=== PATIENT | female | born 1970 | race Caucasian/White ===

== ENCOUNTER 2021-03-14 09:31 | Emergency (ER) | payer OTHER, SELFPAY ==
[2021-03-14 09:41] VITALS: BP 154/80; PULSE 74; RESP 12; TEMP 37.1; O2SAT 100
--- NOTE | 2021-03-14 10:09 | ED.GENADULT ---
HPI - General Adult General Chief complaint: Medical Clearance Stated complaint: wellness check Time Seen by Provider: 03/14/21 10:09 Source: patient, RN notes reviewed and old records reviewed Mode of arrival: ambulatory Limitations: no limitations History of Present Illness HPI narrative: 50-year-old female who presents to [facility] stating that she needs a return to work note. 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 Patient denies any ill symptoms, states has not had any nausea, vomiting or diarrhea, no fevers, chills or sweats, denies any ill symptoms. Has had her COVID vaccination. Related Data Allergies Allergy/AdvReac Type Severity Reaction Status Date / Time No Known Allergies Allergy Unverified 12/11/19 08:50 Review of Systems Review of Systems: Narrative: CONSTITUTIONAL: Denies fever, chills, or sweats. EYES: Denies visual changes, redness, or discharge. ENT: Denies rhinorrhea, congestion, sore throat, or otalgia. CARDIOVASCULAR: Denies chest pain, palpitations, or edema. RESPIRATORY: Denies cough or dyspnea. GASTROINTESTINAL: Denies abdominal pain, nausea, vomiting, or diarrhea. GENITOURINARY: Denies dysuria or hematuria. SKIN: Denies rash or itching. MUSCULOSKELETAL: Denies back pain, joint pain, or myalgia. NEUROLOGIC: Denies headache, numbness, or weakness. PSYCHIATRIC: Positive history of anxiety or depression. All systems reviewed & are unremarkable except as noted in HPI and below PMFSH Past Medical History Medical History (Updated 03/15/21 @ 00:01 by Familia Pimentel) Anxiety and depression Nicotine dependence Surgical History Surgical History (Updated 03/14/21 @ 10:35 by Francisca Camejo NP) Previous section Family History Family History (Updated 03/14/21 @ 10:37 by Francisca Camejo NP) Mother Hypertension Cerebrovascular accident Rectal cancer Father Family history of cardiovascular disease Heart disease Grandparent Bladder cancer Social History Social History (Updated 03/14/21 @ 10:36 by Francisca Camejo NP) Smoking packs per day: 1 Smoking cigarettes per day: 20.0 Smoking status: Current every day smoker Tobacco type: cigarettes Alcohol intake: current Substance use: unknown Living arrangements: with family Gender identity (if verbalized by the patient): Female Comments At time of signature, agree with nursing past medical, surgical, social and family history. There is no relevant family history pertinent to the presenting complaint Exam Narrative: Exam Narrative: GENERAL: Well-appearing, well-nourished, and in no acute distress. HEAD: Normocephalic, atraumatic. EYES: PERRLA and EOMI. ENT: Nares red, no rhinorrhea or epistaxis. Mucous membranes moist.TM's normal with good light reflex, throat pink with no lesions or exudates, no tonsil swelling. has poor dentition with numerous caries and some broken teeth noted, history of tobacco abuse. NECK: Supple.no lymphadenopathy CHEST: Clear to auscultation. No respiratory distress.SAO2 100% on room air HEART: Regular rate and rhythm. No murmur heard. Normal peripheral pulses. ABDOMEN: Soft, nontender, nondistended, normal active bowel sounds.Denies any nausea vomiting or diarrhea episodes. EXTREMITIES: Normal range of motion. No edema. SKIN: Warm, dry, no rash. NEURO: No focal deficits. Alert and oriented x3. Course Vital Signs Vital signs: Vital Signs Temperature 37.1 C 03/14/21 09:41 Pulse Rate 74 03/14/21 09:41 Respiratory Rate 12 03/14/21 09:41 Blood Pressure 154/80 H 03/14/21 09:41 Pulse Oximetry 100 03/14/21 09:41 Temperature 37.1 C 03/14/21 09:41 Pulse Rate 74 03/14/21 09:41 Respiratory Rate 12 03/14/21 09:41 Blood Pressure 154/80 H 03/14/21 09:41 Pulse Oximetry 100 03/14/21 09:41
== END 2021-03-14 10:35 | disposition home or self-care (01) ==
PROVIDERS: Emergency Provider Registered Nurse; PCP Physician Assistant
DX: Z00.8 Encounter for other general examination (principal); F17.210 Nicotine dependence, cigarettes, uncomplicated; F41.9 Anxiety disorder, unspecified; F32.9 Major depressive disorder, single episode, unspecified
CPT/HCPCS: 99211; G0463

== ENCOUNTER 2021-08-15 07:45 | Emergency (ER) | payer OTHER, SELFPAY ==
[2021-08-15 08:05] VITALS: BP 170/77; PULSE 81; RESP 14; TEMP 37.1; O2SAT 100
--- NOTE | 2021-08-15 08:48 | ED.GENADULT ---
HPI - General Adult General Chief complaint: Anxiety Stated complaint: anxiety Time Seen by Provider: 08/15/21 07:48 History of Present Illness HPI narrative: Patient is a 51-year-old female who presents ER with reports of anxiety. Reports she had been driving her car and pulled over to the side of the road. She had been feeling overwhelmed when she tried to get back into traffic she cannot time herself with cars to pull back into traffic properly became increasingly more nervous and anxious. She reports history of anxiety but has not been taking her Escitalopram. No recent stressors. No change in lifestyle. Denies chest pain or chest pressure. No nausea/vomiting/shortness of breath. Reports having some generalized weakness a few days ago. No focal numbness or weakness to an arm or leg. No slurred speech or facial droop. 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 Related Data Allergies Allergy/AdvReac Type Severity Reaction Status Date / Time No Known Allergies Allergy Unverified 12/11/19 08:50 Review of Systems Review of Systems: All systems reviewed & are unremarkable except as noted in HPI and below Constitutional: Constitutional: Denies chills, Reports fatigue and Denies fever(s) ENT: Denies nasal congestion and Denies sore throat Cardiovascular: Cardiovascular: Denies chest pain, Denies rapid heart rate and Denies radiating jaw, neck or arm pain Respiratory: Respiratory: Denies cough and Denies dyspnea Neurologic: Denies focal weakness and Denies numbness Psychiatric: Psychiatric: Reports anxiety and Denies depression [facility] Past Medical History Medical History (Updated 08/15/21 @ 10:04 by Demarco Quintana MD) Anxiety and depression Nicotine dependence Surgical History Surgical History (Updated 03/14/21 @ 10:35 by Francisca Camejo NP) Previous section Family History Family History (Updated 03/14/21 @ 10:37 by Francisca Camejo NP) Mother Hypertension Cerebrovascular accident Rectal cancer Father Family history of cardiovascular disease Heart disease Grandparent Bladder cancer Social History Social History (Updated 03/14/21 @ 10:36 by Francisca Camejo NP) Smoking packs per day: 1 Smoking cigarettes per day: 20.0 Smoking status: Current every day smoker Tobacco type: cigarettes Alcohol intake: current Substance use: unknown Substance use type: does not use Gender identity (if verbalized by the patient): Female Exam Narrative: GENERAL: Well-appearing, well-nourished, and in no acute distress. HEAD: Normocephalic, atraumatic. EYES: PERRL and EOMI. ENT: Mucous membranes moist. CHEST: Clear to auscultation. No respiratory distress. HEART: Regular rate and rhythm. Normal peripheral pulses. ABDOMEN: Soft, nontender, nondistended. EXTREMITIES: Normal range of motion. No edema. 5/5 strength BUE/BLE. SKIN: Warm, dry, no rash. NEURO: No focal deficits. No upper extremity drift. CN II-XII intact. Alert and oriented x3. PSYCH: Mildly anxious, no hallucinations. Course Course Emergency Course: Symptoms resolved with Xanax. Discharge home. Vital Signs Vital signs: Vital Signs Temperature 98.8 F 08/15/21 08:05 Pulse Rate 81 08/15/21 08:05 Respiratory Rate 14 08/15/21 08:05 Blood Pressure 170/77 H 08/15/21 08:05 Pulse Oximetry 100 08/15/21 08:05 Temperature 98.8 F 08/15/21 08:05 Pulse Rate 81 08/15/21 08:05 Respiratory Rate 14 08/15/21 08:05 Blood Pressure 170/77 H 08/15/21 08:05 Pulse Oximetry 100 08/15/21 08:05 Medical Decision Making Vital Signs Vital Signs: Vital Signs Temperature 98.8 F 08/15/21 08:05 Pulse Rate 81 08/15/21 08:05 Respiratory Rate 14 08/15/21 08:05 Blood Pressure 170/77 H 08/15/21 08:05 Pulse Oximetry 100 08/15/21 08:05 Temperature 98.8 F 08/15/21 08:05 Pulse Rate 81 08/15/21 08:05 Respiratory R
[2021-08-15] MEDS: ALPRAZolam (*CRX) 0.25 MG TABLET 0.5 MG PO (09:02)
[2021-08-15 10:15] VITALS: BP 126/72; PULSE 64; RESP 12; O2SAT 98
== END 2021-08-15 10:15 | disposition home or self-care (01) ==
PROVIDERS: Emergency Provider Emergency Medicine; PCP Physician Assistant
DX: F41.9 Anxiety disorder, unspecified (principal); F32.A Depression, unspecified; F17.210 Nicotine dependence, cigarettes, uncomplicated
CPT/HCPCS: 99283; A9270

== ENCOUNTER → 2023-01-12 08:16 | Outpatient (CLI) | payer OTHER, SELFPAY ==
--- NOTE | ~2023-01-12 | CT_ITS ---
EXAMINATION:CT lung screening DATE: 01/12/2023 08:29 INDICATION: Personal history of tobacco dependence. Current smoker with 35 pack year history. TECHNIQUE: Computed tomography (CT) of the chest was performed without intravenous contrast. Automate d exposure control and iterative reconstruction technique were employed. The dose-length product (DLP ) was 36.94 mGy-cm. COMPARISON: Chest 2 views 07/08/2009 FINDINGS: There is mild emphysema. There is mild atelectasis bilaterally. There is a 5 mm nodule in r ight lower lobe abutting the pleura. There is a 6 mm nodule in lingula. There is a 2 mm nodule in lef t upper lobe. There is a 4 mm nodule in left upper lobe. No pleural effusion. The heart size is sonia l. There are coronary artery calcifications. No pericardial effusion. There is a 1.5 cm mass in left breast at 12:00. There is an 8 mm cyst in the liver. There is mild thoracic spondylosis. IMPRESSION: 1. Lung-RADS category 3S: Probably benign. Further evaluation is recommended with noncontrast low-dos e chest CT in 6 months. 2. Left breast mass. A diagnostic mammogram and ultrasound are recommended. Reviewed, dictated and finalized at location A. IMPRESSION: 1. Lung-RADS category 3S: Probably benign. Further evaluation is recommended wi th noncontrast low-dose chest CT in 6 months. 2. Left breast mass. A diagnostic mammogram and ultrasound are recommended.
== END ==
PROVIDERS: PCP Physician Assistant; Visit Provider Physician Assistant
DX: Z12.2 Encounter for screening for malignant neoplasm of respiratory organs (principal); F17.210 Nicotine dependence, cigarettes, uncomplicated; R91.8 Other nonspecific abnormal finding of lung field
CPT/HCPCS: 71271

== ENCOUNTER 2023-01-30 11:58 | Observation (INO) | payer OTHER, SELFPAY ==
[2023-01-30] VITALS (13 sets, daily range): BP systolic 149–193; BP diastolic 55–85; PULSE 54–79; RESP 9–18; TEMP 36.1–36.6; O2SAT 92–98; BMI 16.8
--- NOTE | 2023-01-30 | ECHO_ITS ---
Patient Info Name: Rae Garrett Age: 52 years : 1970 Gender: Female Ht: 66 in Wt: 112 lbs BSA: 1.53 m2 HR: 62 bpm BP: 185 / 76 mmHg Heart Rhythm: Sinus Rhythm Technical Quality: Good Exam Date: 01/30/2023 4:40 PM Exam Location: [facility] Card Pulmonary Patient Status: Outpatient Admit Date: 01/30/2023 Staff Ordering Physician: Trip Lancaster DO Law Reporter: Ana Deleon RDCS Attending Provider: Justen Medina MD Referring Physician: Anisha PINK; Exam Type: CA echo doppler color flow Study Info Indications - TIA Complete two-dimensional, color flow and Doppler transthoracic echocardiogram is performed. Summary 1. Complete two-dimensional, color flow and Doppler transthoracic echocardiogram is performed. 2. Left ventricular chamber dimension is normal. 3. Left ventricular systolic function is normal, estimated at 65-70%. 4. The left ventricular diastolic function is grade II diastolic dysfunction. 5. E/e' 9 is minimally elevated. 6. There is mild aortic valve sclerosis. 7. There is mild aortic valve regurgitation. 8. There is trace mitral valve regurgitation. 9. No pulmonary hypertension, estimated pulmonary arterial systolic pressure is 22 mmHg. Left Ventricle E/e' 9 is minimally elevated. Left ventricular chamber dimension is normal. Left ventricular systolic function is normal, estimated at 65-70%. The left ventricular diastolic function is grade II diastolic dysfunction. Right Ventricle Right ventricular systolic function is normal and with normal TAPSE 2.3 cm. Right ventricular chamber dimension is normal. Left Atria Left atrial chamber dimension is normal. Right Atria Right atrial chamber dimension is normal. Aortic Valve The aortic valve is trileaflet. There is mild aortic valve sclerosis. There is no aortic valve stenosis. There is mild aortic valve regurgitation. Pulmonic Valve There is no pulmonic regurgitation. Mitral Valve There is no mitral valve stenosis. There is trace mitral valve regurgitation. Tricuspid Valve There is no tricuspid valve regurgitation. No pulmonary hypertension, estimated pulmonary arterial systolic pressure is 22 mmHg. Pericardium/Pleural There is no pericardial effusion. Inferior Vena Cava Normal inferior vena cava with >50% collapse upon inspiration consistent with normal right atrial pressure, 5 mmHg. Aorta The aortic root size at the sinus of Valsalva is normal. Left Ventricular Outflow Tract Name Value Normal LVOT 2D LVOT Diameter 2.0 cm LVOT Doppler LVOT Peak Gradient 4 mmHg LVOT Mean Gradient 2 mmHg LVOT VTI 21 cm LVOT VTI/AV VTI Ratio 0.7 LVOT Stroke Volume 65 ml LVOT CO 3.6 l/min LVOT CI 2.3 l/min/m2 Pulmonic Valve Name Value Normal
--- NOTE | ~2023-01-30 | XR_ITS ---
EXAMINATION: XR chest 1V INDICATION: Left arm weakness TECHNIQUE: PA view of the chest is obtained. COMPARISON: 07/08/2009 FINDINGS: The lungs are free of acute opacities. No pleural effusion or pneumothorax. The cardiomedia stinal silhouette is normal. The visualized bones and soft tissues are unremarkable. IMPRESSION: 1. No acute cardiopulmonary abnormality. Reviewed, dictated and finalized at location L.
--- NOTE | ~2023-01-30 | CT_ITS ---
EXAMINATION: CT brain wo con INDICATION: Gait abnormalities and left arm weakness COMPARISON: 05/17/2018 TECHNIQUE: Standard unenhanced head CT. The dose-length product (DLP) was 605.33 mGy-cm. The mA was a djusted according to patient size. Iterative reconstruction technique was employed. FINDINGS: There is no intracranial hemorrhage or abnormal mass lesion. There is an area of hypoattenu ation involving the right frontal, temporal, and parietal region with loss of higginbotham-white matter diffe rentiation. There is subtle hypoattenuation in the right frontal lobe pineda radiata. The ventricles are normal. There is no abnormal mass effect or midline shift. The higginbotham-white matter differentiation is normal. The basal cisterns are patent. The orbits are normal. The paranasal sinuses, mastoids and calvarium are normal. IMPRESSION: 1. Age-indeterminate infarcts involving the right frontal, temporal, and parietal region as well as t he right frontal lobe pineda radiata Reviewed, dictated and finalized at location L. IMPRESSION: 1. Age-indeterminate infarcts involving the right frontal, temporal, and pariet al region as well as the right frontal lobe pineda radiata
--- NOTE | ~2023-01-30 | CT_ITS ---
EXAMINATION: CTA brain carotid DATE: 01/30/2023 16:34 INDICATION: Left arm weakness. Transient ischemic attack. TECHNIQUE: Computed tomographic angiography (CTA) of the head was performed with 100 mL Omnipaque-350 intravenous contrast. CTA of the neck was performed with intravenous contrast. Automated exposure co ntrol and iterative reconstruction technique were employed. The dose-length product was 976.82 mGy-cm . Maximum intensity projection and volume rendered 3D-reconstructions were created by the technItineris t on a separate workstation. COMPARISON: Head CT 01/30/2023 FINDINGS: HEAD CTA: There is an old infarct in the right temporal parietal region. There is an infarct involvin g the right basal ganglia and right frontal lobe pineda radiata. There is no intracranial hemorrhage or abnormal mass lesion. There is ex vacuo dilatation of posterior body of right lateral ventricle. T here is mild mucosal thickening in the paranasal sinuses. There are likely changes of ocular lens rep lacement surgeries. The mastoid air cells are normal. Left vertebral artery is dominant. There is no significant stenosis of basilar artery or the posterior cerebral arteries. There is moderate stenosis of intracranial right internal carotid artery. There is no significant stenosis of intracranial left internal carotid artery. 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 There is total occlusion of right right M2 middle cerebral artery branch. Right A1 anterior cerebral artery segment is absent, a normal variant. Anterior communicating artery is normal . The posterior communicating arteries are normal. NECK CTA: There is mild emphysema. There are nodules in the thyroid measuring up to 9 mm, likely not clinically significant. There are no pathologically enlarged lymph nodes. There is no significant maldonado nosis of the vertebral arteries. There is plaque in the proximal internal carotid arteries. There is 0% stenosis of the proximal right internal carotid artery relative to normal distal artery lumen diam eter (NASCET criteria). There is 0% stenosis of the proximal left internal carotid artery relative to normal distal artery lumen diameter. There is mild cervical spondylosis. IMPRESSION: 1. Old infarct in right temporal parietal region. 2. Age-indeterminate infarct involving the right basal ganglia and right frontal lobe pineda radiata. 3. 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 4. 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 5. 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 6. 0% stenosis of the proximal internal carotid arteries relative to normal distal artery lumen diame ters (NASCET criteria). Reviewed, dictated and finalized at location A. IMPRESSION: 1. Old infarct in right temporal parietal region. 2. Age-indeterminate infarct involving the right basal ganglia and right fronta l lobe pineda radiata. 3. 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 4. 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 5. 3 mm saccular aneurysm of the ophthalmic segment of left internal carotid ar krishna. 6. 0% stenosis of the proximal internal carotid arteries relative to normal dis hudson artery lumen diameters (NASCET criteria).
--- NOTE | ~2023-01-30 | MR_ITS ---
EXAMINATION: MR brain/brain stem wo/w con DATE: 01/31/2023 08:09 INDICATION: Left hemiparesis. Transient ischemic attack. TECHNIQUE: Magnetic resonance imaging (MRI) of the brain and brainstem was performed without and with 9 mL MultiHance intravenous contrast. COMPARISON: Head CT 01/30/2023 FINDINGS: There is an acute infarct in posterior limb right internal capsule. There is an old infarct in right temporal parietal region. There is an old infarct involving the right basal ganglia and rig ht frontal lobe pineda radiata. There is a small old infarct in posterior right frontal lobe. There a re scattered areas of nonspecific increased T2-weighted signal intensity in the cerebral white matter and tania. There is no intracranial hemorrhage or abnormal mass lesion. There is ex vacuo dilatation of trigone and posterior body of right lateral ventricle. There is mild mucosal thickening in the par anasal sinuses. There are likely changes of ocular lens replacement surgeries. The mastoid air cells are normal. IMPRESSION: 1. Acute infarct in posterior limb right internal capsule. 2. Old infarcts involving the right frontal lobe, right basal ganglia, and right temporal parietal re gion. 3. Mild nonspecific cerebral white matter disease and pontine disease, which likely represents chroni c small vessel ischemic disease. Reviewed, dictated and finalized at location A. IMPRESSION: 1. Acute infarct in posterior limb right internal capsule. 2. Old infarcts involving the right frontal lobe, right basal ganglia, and righ t temporal parietal region. 3. Mild nonspecific cerebral white matter disease and pontine disease, which tori kilgore represents chronic small vessel ischemic disease.
--- NOTE | 2023-01-30 12:17 | ECG_ITS ---
Measurements Intervals [place] Rate: 58 P: 69 HI: 137 QRS: 80 QRSD: 94 T: 81 QT: 423 QTc: 417 Interpretive Statements SINUS BRADYCARDIA ABNORMAL ECG NO PREVIOUS ECG AVAILABLE FOR COMPARISON Electronically Signed On 01-31-2023 13:41:57 CDT by Eric Banerjee M.D.
[2023-01-30 12:28] LABS: Basophils Absolute Auto 0.1 K/mm3 (0.0-0.1); Basophils Percent Auto 1.1 % (0.2-1.2); Eosinophils Absolute Auto 0.1 K/mm3 (0-0.3); Eosinophils Percent Auto 1.4 % (0-4.4); Hematocrit 42.3 % (37.0-47.0); Lymphocytes Absolute Auto 2.02 K/mm3 (0.9-3.2); Lymphocytes Percent Auto 36.5 % (18.3-44.2); Mean Corpuscular HGB Conc 33.1 g/dl (32-36); Mean Corpuscular Hemoglobin 31.5 pg (26-34); Mean Corpuscular Volume 95.3 fl (80-100); Mean Platelet Volume 9.7 fl (7.4-10.4); Monocytes Absolute Auto 0.4 K/mm3 (0.1-0.6); Monocytes Percent Auto 6.5 % (2.6-8.5); Neutrophils Percent Auto 54.5 % (45.5-73.1); Platelet Count Result 192 k/mm3 (150-375); Red Blood Count 4.44 M/mm3 (4.2-5.4); Red Cell Distribution Width 14.6 % (11.5-14.5); White Blood Count 5.5 K/mm3 (4.5-10.0)
[2023-01-30 12:37] LABS: Prothrombin Time 12.8 Seconds (11.1-14.7)
[2023-01-30 12:38] LABS: Partial Thromboplastin Time 31.5 SECONDS (22.3-36.8)
[2023-01-30 12:41] LABS: Alanine Aminotransferase 14 U/L (6-35); Albumin Level 4.2 g/dL (3.5-5.1); Alkaline Phosphatase 112 U/L (38-126); Anion Gap 7 mmol/L (8-16); Aspartate Amino Transferase 23 U/L (14-36); Bilirubin,Total 0.6 mg/dL (0.2-1.3); Blood Urea Nitrogen 11 mg/dL (7-17); Calcium 9.2 mg/dL (8.4-10.2); Carbon Dioxide 26 mmol/L (22-30); Chloride 104 mmol/L (98-107); Estimated CRCL calculation 64 ml/min; Estimated Glomerular Filt Rate > 60; Glucose 117 mg/dL (65-110); Potassium 4.1 mmol/L (3.4-5.0); Sodium 137 mmol/L (137-145)
[2023-01-30 12:53] LABS: Troponin I < 0.012 ng/mL (0.000-0.034)
--- NOTE | 2023-01-30 13:56 | ED.NEUROSD ---
HPI - Neuro Symptoms/Deficit General Chief Complaint: Neuro Symptoms/Deficit Stated Complaint: left sided weakness, unsteady gait at 0800 Time Seen by Provider: 01/30/23 12:43 History of Present Illness HPI Narrative: Pt awoke this morning and said she felt unsteady on her feet and was unable to hold her coffee cup with her left hand. Pt states that this has improved quite a bit since then but her left arm feels slightly weak. Pt denies PABLO or visual symptoms. Pt had similar episode several years ago but it was diagnosed as stress and resolved and was not worked up further at that time. Related Data Home Medications Medication Instructions Recorded Confirmed multivitamin with minerals-folic 1 tablet PO 01/30/23 acid 0.4 mg tablet (One Daily Womens 50 Plus) Allergies Allergy/AdvReac Type Severity Reaction Status Date / Time No Known Allergies Allergy Verified 01/30/23 12:11 Review of Systems Review of Systems: All systems reviewed & are unremarkable except as noted in HPI and below PMFSH Past Medical History Medical History Anxiety and depression Nicotine dependence Surgical History Surgical History Previous section Family History Family History Mother Hypertension Cerebrovascular accident Rectal cancer Father Family history of cardiovascular disease Heart disease Grandparent Bladder cancer Social History Social History (Updated 01/01/23 @ 11:19 by Jw Schmid MA) Smoking packs per day: 1.5 Smoking cigarettes per day: 30.0 Years smoked: 30 Smoking pack-years: 45.00 Smoking status: Current every day smoker Tobacco type: cigarettes Alcohol intake: former Substance use: never Substance use type: does not use Lack of Transportation: No Lack of Food: Never True Current Housing: I Have Housing Concerned About Future Housing: No Difficulty Paying Gas/Electric Bills: No Difficulty Paying for Meds: No Currently Unemployed: No Education: Bachelor's Degree Difficulty w/ Childcare or Family Care: No Living arrangements: with family Gender identity (if verbalized by the patient): Female Spiritual care concerns: No Exam Const: General: healthy appearing and no acute distress Nutritional Appearance: well nourished Orientation/consciousness: patient oriented x3 Limitations: no limitations Eyes: Conjunctivae: conjunctivae normal Pupils: Equal, round and reactive pupils present EOM: EOMs intact bilaterally Neck: Neck: normal visual inspection Resp: Effort & Inspection: normal respiratory effort Auscultation: clear to auscultation bilaterally Cardio: Rate: regular rate Rhythm: regular rhythm GI: GI Palp: Yes Soft to palpation Auscultation: normal bowel sounds Skin: General skin exam: normal color Wounds: no wounds Neuro: General: patient oriented x3, moves all extremities, no meningeal signs, no focal motor deficits and CN's II-XI intact bilaterally Cranial nerves: Yes Nystagmus not present Speech: normal speech Other: struggles a ittle with finger to nose on left but thinks it may be related to her vision Extrem: General: normal to inspection and no clubbing, cyanosis or edema Psych: Mental Status: mental status grossly normal Affect: normal affect Attitude: cooperative Course Vital Signs Vital signs: Vital Signs Temperature 97.9 F 01/30/23 12:06 Pulse Rate 79 01/30/23 12:06 Respiratory Rate 18 01/30/23 12:06 Blood Pressure 193/85 H 01/30/23 12:06 Pulse Oximetry 98 01/30/23 12:06 Oxygen Delivery Room Air 01/30/23 12:06 Temperature 97.7 F 01/30/23 18:47 Pulse Rate 58 L 01/30/23 18:47 Respiratory Rate 16 01/30/23 18:47 Blood Pressure 174/55 H 01/30/23 18:47 Pulse Oximetry 97 01/30/23 18:47 Oxygen Delivery
--- NOTE | 2023-01-30 18:45 | ADMGEN ---
This patient, Rae Garrett, was admitted to [facility] Surg Room 321-02. Patient/family oriented to hospital policies and general routines including ID bracelet, bed and alarms, visiting hours, pain management, procedures, bathroom and other care routines, personal items, smoking policy, room service/diet, and visiting hours. Information on how to activate the Rapid Response Team has been discussed. Patient/Family are encouraged to report perceived risks to care and to ask questions if they do not understand what they are told or what they should do.
--- NOTE | 2023-01-30 21:38 | PM.IMHP ---
H&P: HPI History of Present Illness Date/Time: 01/30/23 21:38 Chief Complaint: Neuro deficits Narrative: This is a 52-year-old female patient who came to the emergency room today due to be evaluated because she felt unsteady on her feet and was unable to hold her coffee cup in her left hand today. Patient stated she had symptoms similar to this 2 years ago and had a CT scan and was told that it was negative. The patient feels quite weak in the left arm. She denies any headache or any blurred vision. No facial droop no pronator drift. Once I evaluated the patient all her symptoms had resolved. Head and neck CTA was read as the following. 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 2. Age-indeterminate infarct involving the right basal ganglia and right frontal lobe pineda radiata. 3. 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 4. 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 5. 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 6. 0% stenosis of the proximal internal carotid arteries relative to normal distal artery lumen diameters (NASCET criteria). Chest x-ray was read as no acute cardiopulmonary abnormality. Head CT. Age-indeterminate infarcts involving the right frontal, temporal, and parietal region as well as the right frontal lobe pineda radiata Chest x-ray was read as no acute cardiopulmonary abnormality. Head CT was read as age indeterminate infarcts involving the right frontal temporal and parietal region as well as the right frontal lobe pineda radiata. The patient is being admitted to observation status on the date of service of 01/30/2023. Review of Systems Review of Systems: All systems reviewed & are unremarkable except as noted in HPI and below Constitutional: Constitutional: Reports as per HPI and Reports no additional constitutional complaints Eyes: Eyes: Reports as per HPI and Reports no additional eye complaints ENT: Reports system reviewed and no additional complaints, except as documented and Reports Normal hearing present Cardiovascular: Cardiovascular: Reports no additional cardiovascular complaints Respiratory: Respiratory: Reports no additional respiratory complaints and Reports no additional respiratory complaints Gastrointestinal: Gastrointestinal: Reports as per HPI and Reports no additional gastrointestinal complaints Musculoskeletal: Musculoskeletal: Reports no additional musculoskeletal complaints Integumentary/Breasts: Skin/Breast: Reports system reviewed and no additional complaints, except as docu and Reports as per HPI Neurologic: Reports system reviewed and no additional complaints, except as documented, Reports as per HPI and Reports Normal hearing present Psychiatric: Psychiatric: Reports no additional psychiatric complaints and Reports as per HPI Endocrine: Endocrine: Reports no additional endocrine complaints Hematologic/Lymphatic: Hematologic/Lymphatic: Reports no additional hematologic/lymphatic complaints Allergic/Immunologic: Allergic/Immunologic: Reports no additional allergic/immunologic complaints [facility] Past Medical History Medical History Anxiety and depression Nicotine dependence Surgical History Surgical History Previous section Family History Family History Mother Hypertension Cerebrovascular accident Rectal cancer Father Family history of cardiovascular disease Heart disease Grandparent Bladder cancer Social History Social History (Updated 01/30/23 @ 21:45 by Lynn Chamberlain NP) Social History: The patient lives home with her 2 cats and has a set of twin boys. She is . 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 The patient continues to smoke a pack and half a cigarettes a day. Code st
[2023-01-31] VITALS: PULSE 49
[2023-01-31] MEDS: LEVALBUTEROL NEB 1.25 MG/3 ML INHALATION (01:40)
[2023-01-31] MEDS: IPRATROPIUM BR 0.02% INH SOLN 0.5 MG/2.5 ML VIAL INHALATION (01:40)
[2023-01-31 04:00] VITALS: PULSE 47
[2023-01-31 06:00] VITALS: BP 149/85; PULSE 57; RESP 16; TEMP 36.1; O2SAT 97
[2023-01-31 06:55] LABS: Basophils Absolute Auto 0.1 K/mm3 (0.0-0.1); Basophils Percent Auto 1.5 % (0.2-1.2); Eosinophils Absolute Auto 0.1 K/mm3 (0-0.3); Eosinophils Percent Auto 2.1 % (0-4.4); Hematocrit 42.5 % (37.0-47.0); Hemoglobin 13.8 g/dL (12.0-15.0); Immature Granulocyte Absolute 0.01 K/mm3 (0.00-0.031); Immature Granulocyte Percent A 0.2 % (0-0.5); Lymphocytes Absolute Auto 1.92 K/mm3 (0.9-3.2); Lymphocytes Percent Auto 40.6 % (18.3-44.2); Mean Corpuscular HGB Conc 32.5 g/dl (32-36); Mean Corpuscular Hemoglobin 30.7 pg (26-34); Mean Corpuscular Volume 94.7 fl (80-100); Monocytes Absolute Auto 0.3 K/mm3 (0.1-0.6); Monocytes Percent Auto 6.3 % (2.6-8.5); Neutrophils Absolute Auto 2.3 K/mm3 (1.3-6.7); Neutrophils Percent Auto 49.3 % (45.5-73.1); Platelet Count Result 190 k/mm3 (150-375); Red Blood Count 4.49 M/mm3 (4.2-5.4); Red Cell Distribution Width 14.5 % (11.5-14.5); White Blood Count 4.7 K/mm3 (4.5-10.0)
[2023-01-31 07:05] LABS: Alanine Aminotransferase 13 U/L (6-35); Albumin Level 3.9 g/dL (3.5-5.1); Alkaline Phosphatase 107 U/L (38-126); Anion Gap 5 mmol/L (8-16); Aspartate Amino Transferase 23 U/L (14-36); Bilirubin,Total 0.6 mg/dL (0.2-1.3); Blood Urea Nitrogen 12 mg/dL (7-17); Calcium 8.9 mg/dL (8.4-10.2); Carbon Dioxide 27 mmol/L (22-30); Chloride 107 mmol/L (98-107); Estimated CRCL calculation 60 ml/min; Estimated Glomerular Filt Rate > 60; Glucose 85 mg/dL (65-110); Magnesium 2.3 mg/dL (1.6-2.3); Potassium 4.6 mmol/L (3.4-5.0); Sodium 139 mmol/L (137-145)
[2023-01-31 07:06] LABS: Lactic Acid Reflex 0.8 mmol/L (0.7-2.0)
[2023-01-31 07:49] VITALS: O2SAT 97
[2023-01-31 09:00] VITALS: PULSE 57
[2023-01-31] MEDS: CLOPIDOGREL BISULFATE 75 MG TABLET PO (09:56)
[2023-01-31] MEDS: ESCITALOPRAM OXALATE 5 MG TABLET BY MOUTH (09:56)
[2023-01-31] MEDS: ASPIRIN 81 MG ENTERIC TABLET PO (09:57)
[2023-01-31] MEDS: ATORVASTATIN 20 MG TABLET PO (09:57)
--- NOTE | 2023-01-31 11:01 | WPDNEURCNPN ---
Assessment and Plan Assessment and plan (1) Brain TIA: Code(s): G45.9 - Transient cerebral ischemic attack, unspecified Status: Acute (2) Cognitive deficit due to multiple acute subcortical strokes: Code(s): I63.9 - Cerebral infarction, unspecified; R41.89 - Other symptoms and signs involving cognitive functions and awareness Status: Acute Plan 1 acute infarct in the posterior limb of the right internal capsule. 2 old infarcts involving the right frontal lobe right basal ganglia and right temporal parietal region raising the possibility of embolic phenomena from the be proximal artery in addition to the possibility of subcortical stroke on the basis of the intracranial vascular disease 3 moderate stenosis of the right internal carotid artery intracranially with total occlusion of the right M2 middle cerebral artery branch for incidental finding of 3mm saccular aneurysm of the ophthalmic segment of the left internal carotid artery 4 considering the above findings she can be continued on aspirin and Plavix 6 weeks but in the meantime neurosurgical consultation will be requested because of the incidental finding of the aneurysm which has been explained to the patient and also her son that at this level it will not be approached surgical but does create the ability of secondary bleed and will benefit from the neurosurgical opinion in the long run her Plavix will be taken of after 6 weeks but she will continue aspirin 81 mg daily. Obviously she has smoking history that needs to be dealt with along with documented total cholesterol of 236 and LDL 160 with HDL though 181 but needs to the treated. If any further question arises please do not hesitate to contact me Consult date: 01/31/23 HPI: Rae Garrett is a 52 year old female Admitted to the hospital through the emergency room for the complaints of left-sided weakness with imbalanced gait reportedly she awoke in the morning and felt unsteady on her feet was unable to hold a coffee cup with the left hand subsequently it improved quite a bit but her left upper extremity kept feeling weak she had no associated headache or visual symptoms patient has had the similar episode several years ago but it was diagnosed related to her stress and had no further workup. At present she is taking only multivitamin with minerals. Not allergic to any medication. She does have ongoing history of anxiety with depression and nicotine dependence, she has a history of years smoked 30 smoking pack years 45 currently everyday smoker but former alcohol intake, initial vital signs in the emergency room documented blood pressure 193/85 CBC normal, BMP normal, normal routine lab generally and CT scan of the head without any bleed. Subsequently on the floor she has had the echocardiogram which documented mild aortic valve sclerosis and regurgitation with trace mitral valve regurgitation otherwise nonspecific Review of Systems Review of Systems: All systems reviewed & are unremarkable except as noted in HPI and below PMFSH Past Medical History Medical History Anxiety and depression Nicotine dependence Surgical History Surgical History Previous section Family History Family History Mother Hypertension Cerebrovascular accident Rectal cancer Father Family history of cardiovascular disease Heart disease Grandparent Bladder cancer Social History Social History (Updated 01/30/23 @ 21:45 by Lynn Chamberlain NP) Social History: The patient lives home with her 2 cats and has a set of twin boys. She is . 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 The patient continues to smoke a pack and half a cigarettes a day. Code status full code Smoking packs per day: 1.5 Smoking cigarettes per day: 30.0
--- NOTE | 2023-01-31 11:51 | PC.NURSE ---
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
--- NOTE | 2023-01-31 12:28 | PM.DS ---
DS: Admitting Diagnosis Discharge Date 01/31/23 Admitting Diagnosis CVA DS: Discharge Diagnosis Discharge Diagnosis (1) Brain TIA: Code(s): G45.9 - Transient cerebral ischemic attack, unspecified Status: Acute Assessment and Plan: The patient was started on aspirin and Plavix Neurology has been consulted, see note for recommendations CTA head and neck revealing old infarct in the right parietal region, moderate stenosis of intracranial right internal carotid artery, total occlusion of the right M2 middle cerebral artery branch, 3 mm saccular aneurysm of the ophthalmic segment of the left internal carotid artery Echo revealing EF of 65-70%, grade 2 diastolic dysfunction and valvular disease MRI revealing acute infarct in posterior limb right internal capsule, old infarcts, and nonspecific cerebral white matter disease The patient's symptoms have totally resolved and she is back at her baseline. (2) Breast mass, left: Code(s): N63.20 - Unspecified lump in the left breast, unspecified quadrant Status: Acute Assessment and Plan: The patient stated that she had a routine CT to evaluate for any lung nodules or cancer since she is a smoker and she was found to have a breast nodule. The patient stated that she is scheduled next week for mammogram. I encouraged the patient to follow up with her appointment. (3) Dyslipidemia: Code(s): E78.5 - Hyperlipidemia, unspecified Status: Acute Assessment and Plan: started on 20 mg of atorvastatin. (4) Nicotine dependence: Code(s): F17.200 - Nicotine dependence, unspecified, uncomplicated Status: Acute Assessment and Plan: The patient is requesting a nicotine patch however since she is being ruled out for stroke a did not feel that it was safe for her at this time. Patient was given instructions on smoking cessation. We we spoke for approximately 5 minutes regarding smoking cessation. (5) Essential (primary) hypertension: Code(s): I10 - Essential (primary) hypertension Status: Acute Assessment and Plan: P.r.n. hydralazine with parameters (6) Anxiety and depression: Code(s): F41.9 - Anxiety disorder, unspecified; F32.9 - Major depressive disorder, single episode, unspecified Status: Acute Assessment and Plan: P.r.n. Ativan and continue with Lexapro DS: Summary Hospital Course Reason for hospitalization: CVA Hospital Course: This is a 52-year-old female with a insignificant past medical history the present to the ED due to disequilibrium and left hand weakness. Patient did not any headache or visual symptoms, facial droop or pronator drift. CTA of the head and neck revealed old infarct in the right parietal region, 3 mm saccular aneurysm of the ophthalmic segment of the left internal carotid artery, and total occlusion of the right M2 middle cerebral artery branch. Chest x-ray negative for acute cardiopulmonary processes. Neurology consulted. MRI of the brain revealing acute infarct in posterior limb right internal capsule, old infarcts present, and mild nonspecific cerebral white matter disease. Lipid panel revealed a cholesterol of 236, LDL of 160 and non-HDL of 181. patient's symptom use we resolved at the time she was seen for admission. There is concern for chronic anticoagulation/anti-platelet due to patient's aneurysm. Neurology decided it would be best if patient was prescribed daily 80 aspirin, Plavix 75 mg for 6 weeks and started on 20 mg of Lipitor. Neurology recommended patient follow-up with neuro surgery at [facility] regarding her aneurysm. Patient did have mildly elevated blood pressure and she started on a low-dose lisinopril. Patient is stable and will be discharged in the day 01/31/23. Time Spent with Patient Time attestation: Total time spent providing and/or coordinating discharge services: Exam Narrative: GENER
--- NOTE | 2023-01-31 15:46 | PC.NURSE ---
On 01/31/23, the student, Pastora Chavarria, provided care and completed [facility] documentation on this patient. I have reviewed the student's documentation and agree with the findings.
== END 2023-01-31 14:08 | disposition home or self-care (01) ==
LOC: ANHED 15:50 → ANH3MEDSUR 20:27
PROVIDERS: Nurse Practitioner; Admitting Provider Family Medicine; Emergency Provider Emergency Medicine; PCP Physician Assistant; Visit Provider Student in an Organized Health Care Education/Training Program
DX: G45.9 Transient cerebral ischemic attack, unspecified (principal); N63.20 Unspecified lump in the left breast, unspecified quadrant; E78.5 Hyperlipidemia, unspecified; I63.9 Cerebral infarction, unspecified; R41.89 Other symptoms and signs involving cognitive functions and awareness; R26.81 Unsteadiness on feet; R53.1 Weakness; F41.9 Anxiety disorder, unspecified; F32.A Depression, unspecified; Z82.3 Family history of stroke; F17.210 Nicotine dependence, cigarettes, uncomplicated; I08.0 Rheumatic disorders of both mitral and aortic valves; I11.9 Hypertensive heart disease without heart failure; E78.00 Pure hypercholesterolemia, unspecified; R00.1 Bradycardia, unspecified; R94.31 Abnormal electrocardiogram [ECG] [EKG]; I66.9 Occlusion and stenosis of unspecified cerebral artery; I72.0 Aneurysm of carotid artery; R90.82 White matter disease, unspecified; Z79.899 Other long term (current) drug therapy; Z79.02 Long term (current) use of antithrombotics/antiplatelets; Z79.82 Long term (current) use of aspirin
CPT/HCPCS: 36415; 70450; 70496; 70498; 70553; 71045; 80053; 83605; 83735; 84443; 84484; 85025; 85610; 85730; 93005; 93306; 94640; 99285; A9270; A9577; G0378; Q9967

== ENCOUNTER 2023-02-07 08:35 | Outpatient (CLI) | payer OTHER, SELFPAY ==
--- NOTE | ~2023-02-07 | MMUS_ITS ---
EXAMINATION: MM diagnostic nora BI w karena, US breast BI complete HISTORY: Left breast mass noted on January 12, 2023 CT lung screening examinations TECHNIQUE: Bilateral full field and right spot ML, MLO and CC 3-D tomosynthesis images were performed and synthetic 2-D images were generated. CAD analysis was submitted and interpreted. High resolution bilateral complete breast ultrasound examination including all 4 quadrants and subareolar areas was performed. COMPARISON: 01/12/2023 CT lung screening examination BREAST PARENCHYMAL COMPOSITION: The breasts are extremely dense, which lowers the sensitivity of mamm ography. FINDINGS: MAMMOGRAPHIC FINDINGS: Approximately 1.5 x 2 cm right axillary mass with amorphous calcification. There is a biopsy marker on the right; history of prior benign right breast biopsy. Approximately 1.1 x 2 cm circumscribed low-density opacity in the lateral left subareolar area with h paul sign, most likely benign. ULTRASOUND: Right breast: Right axilla: Oval circumscribed 1.4 x 2.2 x 1.8 cm heterogeneous complex mass with through transmiss ion posterior enhancement, no internal vascularity. Benign-appearing 3.3 x 9.8 and 3.5 x 15 mm right axillary lymph nodes are noted. 9:00 subareolar area: 2.3 x 5.7 x 4.7 mm parallel circumscribed sonolucency with through transmission consistent with benign cyst Left breast: 9:00 subareolar area: 8 x 20 x 18 mm heterogeneous circumscribed lesion with fatty and solid componen ts, with through transmission and posterior enhancement, possibly a hamartoma or fibroadenoma. IMPRESSION: 1. Probable bilateral benign findings 2. 6 month diagnostic bilateral mammogram and targeted right axillary and left 9:00 subareolar breast ultrasound follow-up are recommended BI-RADS category 3, probably benign findings. Reviewed, dictated and finalized at location A. IMPRESSION: 1. Probable bilateral benign findings 2. 6 month diagnostic bilateral mammogram and targeted right axillary and left 9:00 subareolar breast ultrasound follow-up are recommended BI-RADS category 3, probably benign findings.
== END 2023-02-07 08:36 ==
LOC: MICIMG 08:36
PROVIDERS: PCP Physician Assistant; Visit Provider Physician Assistant
DX: N63.20 Unspecified lump in the left breast, unspecified quadrant (principal)
CPT/HCPCS: 76641; 77062; 77066; G0279

== ENCOUNTER 2025-06-03 08:13 | Emergency (ER) | payer OTHER, SELFPAY ==
--- NOTE | ~2025-06-03 | XR_ITS ---
XR foot LT min 3V 06/03/2025 08:38 Indication: Left foot swelling with pain Procedure: 4 views left foot Comparison: No prior studies for comparison. Findings: There is a nondisplaced fracture proximal aspect of the fifth metatarsal with intra-articul ar extension. There is an age-indeterminate avulsion fractures. Margin of the navicular. Mild lateral soft tissue swelling. Impression: 1: Acute nondisplaced intra-articular fracture proximal aspect of the left fifth metatarsal. 2: Age-indeterminate avulsion fracture of the navicular. Reviewed, dictated and finalized at location A. Impression: 1: Acute nondisplaced intra-articular fracture proximal aspect of the left fift h metatarsal. 2: Age-indeterminate avulsion fracture of the navicular.
[2025-06-03 08:19] VITALS: BP 109/80; PULSE 67; RESP 16; TEMP 37.1; O2SAT 99
--- NOTE | 2025-06-03 08:37 | ED_ITS ---
HPI - Extremity Injury (Lower) General Chief Complaint: Extremity Injury, Lower Stated Complaint: fall - left foot pain Time Seen by Provider: 06/03/25 08:19 Source: patient Mode of arrival: ambulatory Limitations: no limitations History of Present Illness HPI Narrative: 55-year-old female presents with complaint of pain to lateral aspect of left foot with swelling and bruising. Patient fell yesterday in driveway. Denies hitting head, no LOC. Was able to get up on her own. Ambulatory with slight limp. Distal neurovascularly intact. All systems reviewed and negative except as noted above. Related Data Home Medications ?Medication ?Instructions ?Recorded ?Confirmed ?Last Taken ?Type multivitamin with minerals-folic 1 tablet PO DAILY 01/30/23 06/03/25 01/30/23 09:00 History acid 0.4 mg tablet (One Daily Womens 50 Plus) Allergies Allergy/AdvReac Type Severity Reaction Status Date / Time No Known Allergies Allergy Verified 06/03/25 08:20 Review of Systems Review of Systems: [facility] Past Medical History Medical History Nicotine dependence Anxiety and depression Surgical History Surgical History Previous section Family History Family History Mother Hypertension Cerebrovascular accident Rectal cancer Father Family history of cardiovascular disease Heart disease Grandparent Bladder cancer Social History Social History Social History: The patient lives home with her 2 cats and has a set of twin boys. She is . 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 The patient continues to smoke a pack and half a cigarettes a day. Code status full code Smoking packs per day: 1.5 Smoking cigarettes per day: 30.0 Years smoked: 30 Smoking pack-years: 45.00 Smoking status: Current every day smoker Tobacco type: cigarettes Alcohol intake: former Substance use: current Substance use type: marijuana Lack of Transportation: No Lack of Food: Never True Current Housing: I Have Housing Concerned About Future Housing: No Difficulty Paying Gas/Electric Bills: No Difficulty Paying for Meds: No Currently Unemployed: No Education: Bachelor's Degree Difficulty w/ Childcare or Family Care: No Living arrangements: with family Occupation/Education: occupation 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 There is no relevant family history pertinent to the presenting complaint. Exam Narrative: GENERAL: This is a well-nourished, well-developed patient, in no apparent distress. HEAD: normocephalic, atraumatic. EYES: PERRL. Sclera clear/white. Vision is grossly intact. EARS: External ears normal NOSE: External nose normal NECK: Neck supple, non-tender without lymphadenopathy, masses or thyromegaly. CARDIOVASCULAR: Regular rate and rhythm without murmurs, gallops, or rubs. RESPIRATORY: Clear to auscultation. Breath sounds equal bilaterally. No wheezes, rales, or rhonchi. SKIN: warm, Dry, intact with no suspicious lesions or rash, good texture and turgor. NEURO: awake, alert, and oriented to person, place and time. There were no obvious focal neurologic abnormalities. EXTREMITIES: Tenderness to base/ proximal aspect left 5th metatarsal with swelling and bruising. Range of motion decreased due to pain. Distal neurov ascularly intact. Course Course Level of Care: Express Care Visit Vital Signs Vital signs: Vital Signs Temperature 37.1 C 06/03/25 08:19 Pulse Rate 67 06/03/25 08:19 Respiratory Rate 16 06/03/25 08:19 Blood Pressure 109/80 06/03/25 08:19 Pulse Oximetry 99 06/03/25 08:19 Temperature 37.1 C 06/03/25 08:19 Pulse Rate 67 06/03/25 08:19 Respiratory Rate 16 06/03/25 08:19 Blood Pressure 109/80 06/03/25 08:19 Pulse Oximetry 99 06/03/25 08:19 Reviewed MDM - Extremity Injury (Lower) MDM Narrative Medical decision making narrative: discussed x-ray results with patient. Patient placed in John wrap and postop shoe. Given crutches. Refer to orthopedics for follow-up. Differential Diagnosis Differential diagnosis: Likely other (foot fracture, foot contusion, foot sprain) Discharge Plan Discharge Clinical Impression: Nondisplaced fracture of fifth left metatarsal bone Qualifiers: Encounter type: initial encounter Fracture type: closed Qualified Code(s): S92.355A - Nondisplaced fracture of fifth metatarsal bone, left foot, initial encounter for closed fracture Patient Disposition: Home Condition: Stable Instructions: Foot Fracture in Adults (ED) Additional Instructions: The x-ray of your left foot shows a fracture to your left 5th metatarsal bone. Take Tylenol or ibuprofen as needed for pain. Take as directed on packaging. Elevate when at rest. Apply ice as needed for pain. Call today to schedule your follow-up appointment with Orthopedics. Patient Language: Tajik Prescriptions: No Action multivit with min-folic acid [One Daily Womens 50 Plus] 0.4 mg Tablet 1 tablet PO DAILY aspirin 81 mg Tablet,Delayed Release (Dr/Ec) 81 mg PO QAM Qty: 90 0RF atorvastatin 20 mg tablet 20 mg PO DAILY Qty: 90 3RF clopidogrel 75 mg tablet 75 mg PO QAM Qty: 90 3RF escitalopram oxalate 5 mg tablet See Rx Instructions .ROUTE .COMPLEX Qty: 90 3RF Dose Instruction: TAKE 1 TABLET BY MOUTH DAILY Rx Instructions: TAKE 1 TABLET BY MOUTH DAILY lisinopril 10 mg tablet 10 mg PO DAILY Qty: 90 3RF Follow-up/Referrals: Radhika Mcguire MD [Primary Care Provider] - Smooth Dick MD [Physician] - (follow up with cost control specialist) Time of Disposition: 09:06
== END 2025-06-03 09:20 | disposition home or self-care (01) ==
PROVIDERS: Emergency Provider Nurse Practitioner Family; PCP Family Medicine
DX: S92.355A Nondisplaced fracture of fifth metatarsal bone, left foot, initial encounter for closed fracture (principal); W19.XXXA Unspecified fall, initial encounter; F17.210 Nicotine dependence, cigarettes, uncomplicated; F12.90 Cannabis use, unspecified, uncomplicated; F41.9 Anxiety disorder, unspecified; F32.A Depression, unspecified; Z79.82 Long term (current) use of aspirin
CPT/HCPCS: 73630; 99214; G0463